=== PATIENT | male | born 1950 | race Caucasian/White ===

== ENCOUNTER → 2023-12-13 14:01 | Outpatient (REF) | payer MEDICARE, OTHER, SELFPAY | LOC: REG 14:01 | PROVIDERS: ATTENDING PHYSICIAN Family Medicine | DX: R05.9 Cough, unspecified (principal) | CPT/HCPCS: 71046 ==

== ENCOUNTER → 2024-07-25 09:41 | Outpatient (REF) | payer MEDICARE, OTHER, SELFPAY | LOC: RAD 09:41 | PROVIDERS: ATTENDING PHYSICIAN Physician Assistant; FAMILY PHYSICIAN Family Medicine | DX: H53.131 Sudden visual loss, right eye (principal) | CPT/HCPCS: 93880 ==

== ENCOUNTER 2024-07-26 07:09 | Day surgery (SDC) | payer MEDICARE, OTHER, SELFPAY ==
[2024-07-26] VITALS (7 sets, daily range): BP systolic 131–152; BP diastolic 80–90; BMI 25.9
[2024-07-26 08:41] LABS: Hematocrit 40.3 % (39.0-52.0); Hemoglobin 13.5 g/dL (13.0-18.0); Mean Corp Hgb Conc. 33.5 g/dL (33.0-37.0); Mean Corpuscular Hgb 28.8 pg (27.0-31.0); Mean Corpuscular Volume 86.1 fL (80.0-94.0); Mean Platelet Volume 9.3 fL (7.4-10.4); Platelet Count 294 10^3/uL (130-400); Red Blood Cell Count 4.68 10^6/uL (4.70-6.10); Red Cell Dist. Width 14.6 % (11.5-14.5); White Blood Cell Count 12.8 10^3/uL (4.8-10.8)
[2024-07-26 08:51] LABS: APTT 27.1 Sec (23.4-35.0); INR 1.09; PT 14.1 Sec (11.4-14.6)
[2024-07-26 08:52] LABS: Blood Urea Nitrogen 21 mg/dl (9-20); Calcium 10.6 mg/dl (8.4-10.2); Carbon Dioxide 26 mmol/L (22-30); Chloride 105 mmol/L (98-107); Estimated Creatinine Clearance 65 ml/min; Glucose 112 mg/dl (70-99); Potassium 3.8 mmol/L (3.5-5.1); Sodium 144 mmol/L (135-145); eGFR > 60.00
[2024-07-26] MEDS: NSS 500 IV (08:55)
[2024-07-26] MEDS: BACTROBAN NASAL 1 GRAM NASAL (08:55)
[2024-07-26] MEDS: PERIDEX 0.12% ORAL RINSE 15 ML PO (08:55)
--- NOTE | 2024-07-26 09:54 | W.SUR.PREOP ---
Pre-Operative Surgical Note
-
I have examined this patient prior to the performance of the scheduled procedure.
The patient's condition is unchanged from the time of the current History and
Physical and the patient is able to undergo the scheduled procedure.
--- NOTE | 2024-07-26 14:22 | OR.RPT ---
Operative Report
Operative Report
PROCEDURE DATE: 07/26/2024
Preoperative diagnosis: Temporal arteritis
Postoperative diagnosis: Same
Procedure: Bilateral superficial temporal artery biopsies.
Surgeon: Gamal
Commercial Sales Director: Aki, required for all aspects of procedure including assistance with traction countertraction and assistance with closure.
Complications: None
Anesthesia: Local, sedation
Indications for procedure:
Referred for concern for temporal arteritis. Risk/benefit/alternatives of temporal artery biopsies were discussed. Patient understood all wished to proceed.
Description of procedure:
Patient was identified brought to the operating room placed on the table in supine position. After the adequate administration of anesthesia and perioperative antibiotics he was prepped and draped in the standard surgical fashion. A standard
preoperative timeout was undertaken and everybody was in agreement the plan. A longitudinal incision was made in the scalp just anterior and superior to the superiormost aspect of the pinna of the right ear (overlying the palpable pulsation of the
artery) after infiltration of the skin and subcutaneous tissue with 1% lidocaine. This was carried down through the subcutaneous layer and the fascia layer with electrocautery. The superficial temporal artery was identified. It was mobilized
using sharp dissection. It was then ligated proximally and distally as well as a branch ligated all with silk ties and a clip. I then transected the artery. This was then sent for specimen.
A similar incision was made in the left scalp just anterior and superior to the superiormost aspect of the pinna of the left ear (overlying the palpable pulsation of the artery) after infiltration of the skin and subcutaneous tissue with 1%
lidocaine. Similarly this was carried down through the subcutaneous tissue and fascial layer with the electrocautery. The superficial temporal artery was identified and was mobilized using sharp dissection. It was then ligated proximally and
distally as well as a branch ligated all with silk ties and a clip. I then transected the artery. This was then sent for specimen.
Both incision sites were then irrigated. Hemostasis was achieved and confirmed. I then closed in layers using 3-0 Vicryl deep dermal layer followed by 4-0 Monocryl subcuticular running layer (this was completed bilaterally). Dermabond was then
applied bilaterally. Patient tolerated procedure well.
== END 2024-07-26 12:58 | disposition home or self-care (01) ==
LOC: CATH 07:09
PROVIDERS: ATTENDING PHYSICIAN Surgery Vascular Surgery; FAMILY PHYSICIAN Family Medicine; OTHER PHYSICIAN Internal Medicine Interventional Cardiology
DX: H53.131 Sudden visual loss, right eye (principal); I10 Essential (primary) hypertension; E78.00 Pure hypercholesterolemia, unspecified; I25.10 Atherosclerotic heart disease of native coronary artery without angina pectoris; Z79.82 Long term (current) use of aspirin
CPT/HCPCS: 37609; 88305; 80048; 85027; 85610; 85730; 86850; 86900; 86901; 88313; 93005

== ENCOUNTER → 2024-07-30 16:35 | Outpatient (REF) | payer MEDICARE, OTHER, SELFPAY | LOC: MRI 3T 16:35 | PROVIDERS: ATTENDING PHYSICIAN Ophthalmology; FAMILY PHYSICIAN Family Medicine | DX: H47.10 Unspecified papilledema (principal) | CPT/HCPCS: 70553; A9575 ==

== ENCOUNTER → 2024-07-31 10:40 | Outpatient (REF) | payer MEDICARE, OTHER, SELFPAY | LOC: HWRAD 10:40 | PROVIDERS: ATTENDING PHYSICIAN Family Medicine; REFERRING PHYSICIAN Physician Assistant | DX: R13.10 Dysphagia, unspecified (principal) | CPT/HCPCS: 76536 ==

== ENCOUNTER 2025-03-14 06:18 | Day surgery (SDC) | payer MEDICARE, OTHER, SELFPAY | END 2025-03-14 12:21 | disposition home or self-care (01) | LOC: GI 06:18 | PROVIDERS: ATTENDING PHYSICIAN Internal Medicine Gastroenterology; FAMILY PHYSICIAN Family Medicine | DX: K22.89 Other specified disease of esophagus (principal); K44.9 Diaphragmatic hernia without obstruction or gangrene; K29.70 Gastritis, unspecified, without bleeding; K20.90 Esophagitis, unspecified without bleeding; K29.50 Unspecified chronic gastritis without bleeding | CPT/HCPCS: 43239; 88305; 88342 ==

== ENCOUNTER → 2025-06-19 06:54 | Outpatient (REF) | payer MEDICARE, OTHER, SELFPAY | LOC: MRI 3T 06:54 | PROVIDERS: ATTENDING PHYSICIAN Ophthalmology Neuro-ophthalmology; FAMILY PHYSICIAN Family Medicine | DX: H47.091 Other disorders of optic nerve, not elsewhere classified, right eye (principal) | CPT/HCPCS: 70543; 70553; A9575 ==

== ENCOUNTER → 2025-08-21 07:25 | Outpatient (REF) | payer MEDICARE, OTHER, SELFPAY ==
[2025-08-21 08:13] LABS: INR 0.99; PT 13.6 Sec (11.4-14.6)
[2025-08-21 08:14] VITALS: BP 154/88; BP_SYST 67
[2025-08-21 10:22] LABS: CSF Color Colorless; Red Cell Count/CSF 12 mm^3; White Cell Count/CSF 1 mm^3 (0-5)
[2025-08-23 00:45] LABS: C.neoformans Antigen Negative (Negative)
== END ==
LOC: RADI 07:25
PROVIDERS: ATTENDING PHYSICIAN Physician Assistant; FAMILY PHYSICIAN Family Medicine
DX: A53.0 Latent syphilis, unspecified as early or late (principal); R51.9 Headache, unspecified
CPT/HCPCS: 36415; 62328; 82945; 84157; 85610; 86592; 87015; 87070; 87205; 87327; 89051